=== PATIENT | female | born 1970 | race American Indian/Alaskan Native ===

== ENCOUNTER 2017-06-16 20:35 | Emergency (ER) | payer MEDICAID ==
--- NOTE | 2017-06-16 20:58 | EDM.PDOC ---
ED HPI GENERAL MEDICAL PROBLEM - General Chief Complaint: ENT Problem Stated Complaint: SORE THROAT Time Seen by Provider: 06/16/17 20:35 Source of Information: Reports: Patient History Limitations: Reports: No Limitations - History of Present Illness INITIAL COMMENTS - FREE TEXT/NARRATIVE: 46 y.o.f came to the ed due to sore throat, running nose and a prod cough. Pt quit smoking a week ago. No N/V/D or any other acute medical issues. BP 139/77 RR 18 Pulse ox 99% Temp 36.6 Pulse 87 Onset Date: 06/10/17 Onset Time: 09:00 Duration: Day(s):, Getting Worse, Intermittent Location: Reports: Chest Quality: Reports: Ache, Burning Severity: Mild Improves with: Reports: None Worsens with: Reports: None Throat Pain Score (Numeric/FACES): 8 - Related Data Allergies Allergy/AdvReac Type Severity Reaction Status Date / Time dust Allergy Wheezing Uncoded 06/16/17 20:44 Home Meds: Home Meds Ascorbic Acid [Vitamin C] 250 mg PO DAILY 06/16/17 [History] Calcium Carbonate/Vitamin D3 [Caltrate 600+D 1500 MG-400 Units] 1 tab PO DAILY 06/16/17 [History] Cetirizine [ZyrTEC] 10 mg PO DAILY 06/16/17 [History] Citalopram [Citalopram HBr] 20 mg PO DAILY 06/16/17 [History] Fluticasone Furoate [Flonase Sensimist] 2 sprays(dnu) NASBOTH DAILY 06/16/17 [ History] Gabapentin [Neurontin] 300 mg PO BID 06/16/17 [History] Multivitamins/Iron/Folic Acid [Cerovite Advanced Formula] 1 tab PO DAILY [History] Naproxen 500 mg PO DAILY 06/16/17 [History] Omeprazole 20 mg PO BEDTIME 06/16/17 [History] Sulfamethoxazole/Trimethoprim [Bactrim Ds Tablet] 1 each PO BID #20 tablet 06/16 [Rx] atorvaSTATin [Lipitor] 10 mg PO BEDTIME 06/16/17 [History] ED ROS ENT - Review of Systems Review Of Systems: See Below Constitutional: Reports: No Symptoms HEENT: Reports: Throat Pain Respiratory: Reports: Cough Cardiovascular: Reports: No Symptoms Endocrine: Reports: No Symptoms GI/Abdominal: Reports: No Symptoms : Reports: No Symptoms Musculoskeletal: Reports: No Symptoms Skin: Reports: No Symptoms Neurological: Reports: No Symptoms Psychiatric: Reports: No Symptoms Hematologic/Lymphatic: Reports: No Symptoms Immunologic: Reports: No Symptoms ED EXAM, ENT - Physical Exam Exam: See Below Exam Limited By: No Limitations General Appearance: Alert, WD/WN, Mild Distress Eye Exam: Bilateral Eye: Normal Inspection Ears: Normal External Exam Nose: Normal Inspection Mouth/Throat: Normal Inspection, Normal Gums Head: Atraumatic, Normocephalic Neck: Normal Inspection, Supple, Non-Tender, Full Range of Motion Respiratory/Chest: No Respiratory Distress, Rhonchi Cardiovascular: Normal Peripheral Pulses, Regular Rate, Rhythm, No Edema, No Gallop, No JVD, No Murmur, No Rub GI/Abdominal: Normal Bowel Sounds, Soft, Non-Tender, No Organomegaly, No Distention, No Abnormal Bruit, No Mass, Pelvis Stable (Female) Exam: Normal External Exam, Normal Speculum Exam, Normal Bimanual Exam Rectal (Female) Exam: Normal Exam, Normal Rectal Tone Back: Normal Inspection, Full Range of Motion Extremities: Normal Inspection, Normal Range of Motion Neurological: Alert, Oriented, CN II-XII Intact, Normal Cognition Psychiatric: Normal Affect, Normal Mood Skin: Warm, Dry Lymphatic: No Adenopathy Course - Vital Signs Text/Narrative:: 46 y.o.f came to the ed due to sore throat, running nose and a prod cough. Pt quit smoking a week ago. No N/V/D or any other acute medical issues. BP 139/77 RR 18 Pulse ox 99% Temp 36.6 Pulse 87 PE: Obese 46 y.o.f with nasal congestion and acute prod. cough Labs: RST and Influenza tests were neg, Cx is pending Impression: Acute Bronchitis, nasal congestion Tx: Bactrim DS Reexam: Improved Plan: D/C with instructions Last Recorded V/S: Last Vital Signs Temp 36.9 C 06/16/17 20:55 Pulse 83 06/16/17 22:20 Resp 18 06/16/17 20:55 BP 131/73 06/16/17 22:20 Pulse Ox 99 06/16/17 20:55 - Orders/Labs/Meds Meds: Medications Discontinued Medications Generic Name Dose Route Start Last Admin Trade Name Freq PRN Reason Stop Dose Admin Trimethoprim/Sulfamethoxazole 1 tab 06/16/17 22:05 06/16/17 22:15 Septra Ds PO 06/16/17 22:06 1 tab ONETIME ONE Administration Departure - Departure Time of Disposition: 22:06 Disposition: Home, Self-Care 01 Condition: Good Clinical Impression: Acute bronchitis Qualifiers: Bronchitis organism: other organism Qualified Code(s): J20.8 - Acute bronchitis due to other specified organisms - Discharge Information Prescriptions: Sulfamethoxazole/Trimethoprim [Bactrim Ds Tablet] 1 each PO BID #20 tablet Referrals: Bernice Coronado, [facility] [Primary Care Provider] - Forms: ED Department Discharge Additional Instructions: Please quit tobacco use entirely, please take the meds as recommended, please f/ u, come back if your symptoms get worse acutely.
[2017-06-16] MEDS ORDERED: Sulfamethoxazole/Trimethoprim 800-160 MG Tab PO ONE (22:05)
== END 2017-06-16 22:20 | disposition home or self-care (01) ==
LOC: FB.ED 20:35
DX: J20.8 Acute bronchitis due to other specified organisms (principal); Z91.048 Other nonmedicinal substance allergy status; Z79.899 Other long term (current) drug therapy
CPT/HCPCS: 87081; 87804; 87880; 99283; A9270

== ENCOUNTER 2018-12-12 23:13 | Emergency (ER) | payer MEDICAID ==
--- NOTE | 2018-12-12 23:17 | EDM.PDOC ---
ED HPI GENERAL MEDICAL PROBLEM - General Stated Complaint: BODY ACHES Time Seen by Provider: 12/12/18 23:16 Source of Information: Reports: Patient, EMS History Limitations: Reports: No Limitations - History of Present Illness INITIAL COMMENTS - FREE TEXT/NARRATIVE: 48 y.o.f. came to the ed by EMS due to pain urinations and gen body ache which started a few days ago. No N/V/D, no sick contact. No C/P no SOP or any other acute med issues. BP 124/74 RR 18 Pulse ox 100% on RA Temp 37.5 Pulse 95 Onset Date: 12/12/18 Onset Time: 10:00 Duration: Hour(s):, Intermittent Location: Reports: Generalized Quality: Reports: Burning Severity: Mild Improves with: Reports: Rest Worsens with: Reports: Other Context: Reports: Other Associated Symptoms: Reports: Other (gen bodyache) - Related Data Allergies Allergy/AdvReac Type Severity Reaction Status Date / Time dust Allergy Wheezing Uncoded 06/16/17 20:44 Home Meds: Home Meds Ascorbic Acid [Vitamin C] 250 mg PO DAILY 06/16/17 [History] Calcium Carbonate/Vitamin D3 [Caltrate 600+D 1500 MG-400 Units] 1 tab PO DAILY 06/16/17 [History] Cetirizine [ZyrTEC] 10 mg PO DAILY 06/16/17 [History] Citalopram [Citalopram HBr] 20 mg PO DAILY 06/16/17 [History] Fluticasone Furoate [Flonase Sensimist] 2 sprays(dnu) NASBOTH DAILY 06/16/17 [ History] Gabapentin [Neurontin] 300 mg PO BID 06/16/17 [History] Multivitamins/Iron/Folic Acid [Cerovite Advanced Formula] 1 tab PO DAILY [History] Naproxen 500 mg PO BID 06/16/17 [History] Omeprazole 20 mg PO DAILY 06/16/17 [History] Sulfamethoxazole/Trimethoprim [Bactrim Ds Tablet] 1 each PO BID #20 tablet 06/16 [Rx] Ciprofloxacin HCl [Cipro] 500 mg PO BID #20 tablet 12/12/18 [Rx] Gabapentin [Neurontin] 300 mg PO TID 12/12/18 [History] Phenazopyridine [Pyridium] 100 mg PO TID #9 tablet 12/12/18 [Rx] Acetaminophen [Tylenol Arthritis] 650 mg PO Q8H PRN 12/13/18 [History] Acetaminophen [Tylenol] 1 - 2 tab PO TID PRN 12/13/18 [History] Albuterol Sulfate [Albuterol Sulfate Hfa] 2 puff IH Q4H PRN 12/13/18 [History] Cyclobenzaprine [Flexeril] 10 mg PO TID PRN 12/13/18 [History] Rosuvastatin [Crestor] 5 mg PO DAILY 12/13/18 [History] Solifenacin [Vesicare] 5 mg PO DAILY 12/13/18 [History] Zolpidem Tartrate [Ambien] 10 mg PO BEDTIME PRN 12/13/18 [History] Past Medical History - Past Health History Medical/Surgical History: Denies Medical/Surgical History Social & Family History - Caffeine Use Caffeine Use: Reports: Tea ED ROS GENERAL - Review of Systems Review Of Systems: See Below Constitutional: Reports: No Symptoms HEENT: Reports: No Symptoms Respiratory: Reports: No Symptoms Cardiovascular: Reports: No Symptoms Endocrine: Reports: No Symptoms GI/Abdominal: Reports: No Symptoms : Reports: No Symptoms Musculoskeletal: Reports: Muscle Pain Skin: Reports: No Symptoms Neurological: Reports: No Symptoms Psychiatric: Reports: No Symptoms Hematologic/Lymphatic: Reports: No Symptoms Immunologic: Reports: No Symptoms ED EXAM, GENERAL - Physical Exam Exam: See Below Exam Limited By: No Limitations General Appearance: Alert, WD/WN, Mild Distress Eye Exam: Bilateral Eye: Normal Inspection Ears: Normal External Exam Ear Exam: Bilateral Ear: Auricle Normal Nose: Normal Inspection, Normal Mucosa Throat/Mouth: Normal Lips, Normal Voice, No Airway Compromise Head: Atraumatic, Normocephalic Neck: Normal Inspection, Supple, Non-Tender, Full Range of Motion Respiratory/Chest: No Respiratory Distress, Lungs Clear, Normal Breath Sounds, No Accessory Muscle Use, Chest Non-Tender Cardiovascular: Normal Peripheral Pulses, Regular Rate, Rhythm, No Edema, No Gallop, No Murmur, No Rub Peripheral Pulses: 1+: Radial (R) GI/Abdominal: Normal Bowel Sounds, Soft, Non-Tender, No Organomegaly, No Abnormal Bruit, No Mass, Pelvis Stable, Tender (suprapubic) (Female) Exam: Deferred Rectal (Female) Exam: Deferred Back Exam: Normal Inspection, Full Range of Motion Extremities: Normal Inspection, Normal Range of Motion, Non-Tender, Normal Capillary Refill Neurological: Alert, Oriented, CN II-XII Intact, Normal Cognition, Normal Gait, No Motor/Sensory Deficits Psychiatric: Normal Affect, Normal Mood Skin Exam: Warm, Dry, Intact, Normal Color, No Rash Lymphatic: No Adenopathy Course - Vital Signs Text/Narrative:: 48 y.o.f. came to the ed by EMS due to pain urinations and gen body ache which started a few days ago. No N/V/D, no sick contact. No C/P no SOP or any other acute med issues. BP 124/74 RR 18 Pulse ox 100% on RA Temp 37.5 Pulse 95 PE: WNWD W F with dysiria and gen body ache, no F/C Labs: CBC: WBC 13K Glc 119 UA pos for UTI with hematuria Impression: UTI with hematuria, body ache Tx: Levaquin, Pyridium and Toradol Reexam: Pt was pain free on D/C Plan: D/C with instructions Last Recorded V/S: Last Vital Signs Temp 37.5 C 12/12/18 23:15 Pulse 95 12/12/18 23:15 Resp 18 12/12/18 23:15 BP 142/74 H 12/12/18 23:15 Pulse Ox 100 12/12/18 23:15 - Orders/Labs/Meds Orders: Active Orders 24 hr Category Date Time Status CULTURE URINE [RM] Stat Lab 12/12/18 23:35 Received Labs: Laboratory Tests 12/12/18 12/12/18 12/12/18 Range/Units 23:31 23:31 23:35 WBC 13.0 H (4.5-12.0) X10-3/uL RBC 3.93 (3.23-5.20) x10(6)uL Hgb 12.2 (11.5-15.5) g/dL Hct 35.5 (30.0-51.3) % MCV 90.3 (80-96) fL MCH 31.0 (27.7-33.6) pg MCHC 34.3 (32.2-35.4) g/dL RDW 12.9 (11.5-15.5) % Plt Count 272 (125-369) X10(3)uL MPV 9.5 (7.4-10.4) fL Add Manual Diff Yes Neutrophils % (Manual) 78 (46-82) % Band Neutrophils % 3 (0-6) % Lymphocytes % (Manual) 12 L (13-37) % Monocytes % (Manual) 5 (4-12) % Eosinophils % (Manual) 2 (0-5) % Sodium 142 (135-145) mmol/L Potassium 4.6 (3.5-5.3) mmol/L Chloride 106 (100-110) mmol/L Carbon Dioxide 26 (21-32) mmol/L BUN 12 (7-18) mg/dL Creatinine 0.7 (0.55-1.02) mg/dL Est Cr Clr Drug Dosing TNP Estimated GFR (MDRD) > 60 (>60) BUN/Creatinine Ratio 17.1 (9-20) Glucose 119 H (80-116) mg/dL Calcium 8.6 (8.6-10.2) mg/dL Urine Color Yellow (YELLOW) Urine Appearance Slightly cloudy (CLEAR) Urine pH 6.0 (5.0-6.5) Ur Specific [place] 1.015 (1.010-1.025) Urine Protein Negative (NEGATIVE) mg/dL Urine Glucose (UA) Normal (NORMAL) mg/dL Urine Ketones Negative (NEGATIVE) mg/dL Urine Occult Blood Trace (NEGATIVE) Urine Nitrite Positive H (NEGATIVE) Urine Bilirubin Negative (NEGATIVE) Urine Urobilinogen Normal (NEGATIVE) mg/dL Ur Leukocyte Esterase Moderate H (NEGATIVE) Urine RBC 5-10 H (0-5) Urine WBC 30-40 H (0-5) Ur Squamous Epith Cells Few H (NS,R,O) Urine Bacteria Many H (NS) Meds: Medications Discontinued Medications Generic Name Dose Route Start Last Admin Trade Name Freq PRN Reason Stop Dose Admin Ketorolac Tromethamine 60 mg 12/12/18 23:55 12/13/18 00:34 Toradol IM 12/12/18 23:56 60 mg ONETIME ONE Administration Levofloxacin 500 mg 12/12/18 23:55 12/13/18 00:34 Levaquin PO 12/12/18 23:56 500 mg ONETIME ONE Administration Phenazopyridine HCl 95 mg 12/12/18 23:55 12/13/18 00:34 Urinary Pain Relief PO 12/12/18 23:56 95 mg ONETIME STA Administration Departure - Departure Time of Disposition: 23:58 Disposition: Home, Self-Care 01 Condition: Good Clinical Impression: UTI (urinary tract infection) - Discharge Information Prescriptions: Ciprofloxacin HCl [Cipro] 500 mg PO BID #20 tablet Phenazopyridine [Pyridium] 100 mg PO TID #9 tablet Referrals: PCP,None [Primary Care Provider] - Forms: ED Department Discharge Additional Instructions: Please increase water intake, please take the meds as recommended, please f/u, come back if your symptoms get worse acutely - My Orders Last 24 Hours: My Active Orders 12/12/18 23:35 CULTURE URINE [RM] Stat - Assessment/Plan Last 24 Hours: My Active Orders 12/12/18 23:35 CULTURE URINE [RM] Stat
[2018-12-12] MEDS ORDERED: Ketorolac 60 MG/2 ML SDV IM ONE (23:55)
[2018-12-12] MEDS ORDERED: Levofloxacin 500 MG Tab PO ONE (23:55)
[2018-12-12] MEDS ORDERED: Phenazopyridine 95 MG Tab PO STA (23:55)
== END 2018-12-13 01:35 | disposition home or self-care (01) ==
LOC: FB.ED 23:13
DX: N39.0 Urinary tract infection, site not specified (principal); Z91.048 Other nonmedicinal substance allergy status; Z79.899 Other long term (current) drug therapy
CPT/HCPCS: 36415; 80048; 81001; 85025; 87086; 87088; 87186; 96372; 99283; A9270; J1885

== ENCOUNTER 2019-03-24 00:40 | Emergency (ER) | payer MEDICAID ==
--- NOTE | 2019-03-24 01:20 | EDM.PDOC ---
ED HPI GENERAL MEDICAL PROBLEM - General Chief Complaint: Respiratory Problem Stated Complaint: COUGHING, H/A Time Seen by Provider: 03/24/19 01:00 Source of Information: Reports: Patient, Old Records History Limitations: Reports: No Limitations - History of Present Illness INITIAL COMMENTS - FREE TEXT/NARRATIVE: Kim comes into [facility] ED with a week long hx of nonproductive coughing, malaise , achiness, low grade fever. She also fell out of bed and has a sore R lower chest wall that is aggravated with coughing. She is also feeling some burning on urination and frequency of voiding lately. There is no hx of asthma, but she believes she is allergic to house dust. - Related Data Allergies Allergy/AdvReac Type Severity Reaction Status Date / Time atorvastatin [From Lipitor] Allergy Edema Verified 03/24/19 01:01 dust Allergy Wheezing Uncoded 12/13/18 06:16 Home Meds: Home Meds Ascorbic Acid [Vitamin C] 250 mg PO DAILY 06/16/17 [History] Calcium Carbonate/Vitamin D3 [Caltrate 600+D 1500 MG-400 Units] 1 tab PO DAILY 06/16/17 [History] Cetirizine [ZyrTEC] 10 mg PO DAILY 06/16/17 [History] Fluticasone Furoate [Flonase Sensimist] 2 sprays(dnu) NASBOTH DAILY 06/16/17 [ History] Multivitamins/Iron/Folic Acid [Cerovite Advanced Formula] 1 tab PO DAILY [History] Naproxen 500 mg PO BID 06/16/17 [History] Omeprazole 20 mg PO DAILY 06/16/17 [History] Gabapentin [Neurontin] 300 mg PO TID 12/12/18 [History] Phenazopyridine [Pyridium] 100 mg PO TID #9 tablet 12/12/18 [Rx] Acetaminophen [Tylenol Arthritis] 650 mg PO Q8H PRN 12/13/18 [History] Acetaminophen [Tylenol] 1 - 2 tab PO TID PRN 12/13/18 [History] Albuterol Sulfate [Albuterol Sulfate Hfa] 2 puff IH Q4H PRN 12/13/18 [History] Cyclobenzaprine [Flexeril] 10 mg PO TID PRN 12/13/18 [History] Rosuvastatin [Crestor] 5 mg PO DAILY 12/13/18 [History] Solifenacin [Vesicare] 5 mg PO DAILY 12/13/18 [History] Zolpidem Tartrate [Ambien] 10 mg PO BEDTIME PRN 12/13/18 [History] Doxycycline [Vibramycin] 100 mg PO BID #14 cap 03/24/19 [Rx] Phenylephrine/Promethazine [Phenergan VC] 2 tsp PO QID PRN #120 ml 03/24/19 [Rx] Past Medical History - Past Health History Medical/Surgical History: Denies Medical/Surgical History Genitourinary History: Reports: Urinary Incontinence, UTI, Recurrent Musculoskeletal History: Reports: Fibromyalgia Neurological History: Reports: Other (See Below) Other Neuro History: Bulging disc. Arthritic spine. Psychiatric History: Reports: Depression, OCD, Other (See Below) Other Psychiatric History: States she has mental health issues. Past suicidal concerns. Endocrine/Metabolic History: Reports: Other (See Below) Other Endocrine/Metabolic History: States she is pre-diabetic. Social & Family History - Caffeine Use Caffeine Use: Reports: Tea ED ROS GENERAL - Review of Systems Review Of Systems: See Below Constitutional: Reports: Fever, Malaise HEENT: Reports: Glasses, Rhinitis Respiratory: Reports: Cough Cardiovascular: Reports: No Symptoms Endocrine: Reports: No Symptoms GI/Abdominal: Reports: No Symptoms : Reports: Dysuria, Frequency, Urgency Musculoskeletal: Reports: No Symptoms Skin: Reports: No Symptoms Neurological: Reports: No Symptoms Psychiatric: Reports: Anxiety, Depression Hematologic/Lymphatic: Reports: No Symptoms Immunologic: Reports: No Symptoms ED EXAM, GENERAL - Physical Exam Exam: See Below Exam Limited By: No Limitations General Appearance: Alert, WD/WN, Obese Eye Exam: Bilateral Eye: EOMI, Normal Inspection, PERRL Ears: Normal External Exam, Normal TMs Nose: Normal Inspection Throat/Mouth: Normal Inspection, Normal Lips, Normal Gums, Normal Oropharynx, Normal Voice, No Airway Compromise Head: Normocephalic Neck: Normal Inspection, Supple, Non-Tender Respiratory/Chest: No Respiratory Distress, No Accessory Muscle Use, Decreased Breath Sounds, Crackles, Rhonchi Cardiovascular: Regular Rate, Rhythm, No Murmur GI/Abdominal: Normal Bowel Sounds, Soft, Non-Tender, No Organomegaly, No Distention, No Mass (Female) Exam: Deferred Rectal (Female) Exam: Deferred Back Exam: Normal Inspection Extremities: Normal Inspection Neurological: Alert, Oriented, CN II-XII Intact, Normal Cognition, No Motor/ Sensory Deficits Psychiatric: Normal Affect, Anxious Skin Exam: Warm, Dry, Intact, Normal Color, No Rash Lymphatic: No Adenopathy Course - Vital Signs Text/Narrative:: Following assessment, I ordered a chest x ray: no active infiltrates; CBC, BMP and Influenza Screen A&B: neg. Last Recorded V/S: Last Vital Signs Temp 37.6 C 03/24/19 00:40 Pulse 109 H 03/24/19 00:40 Resp 20 03/24/19 00:40 BP 133/72 03/24/19 00:40 Pulse Ox 100 03/24/19 00:40 - Orders/Labs/Meds Orders: Active Orders 24 hr Category Date Time Status Chest 2V [CR] Stat Exams 03/24/19 01:12 Taken Labs: Laboratory Tests 03/24/19 03/24/19 03/24/19 Range/Units 01:16 01:35 01:35 WBC 12.2 H (4.5-12.0) X10-3/uL RBC 3.55 (3.23-5.20) x10(6)uL Hgb 10.5 L (11.5-15.5) g/dL Hct 31.7 (30.0-51.3) % MCV 89.5 (80-96) fL MCH 29.6 (27.7-33.6) pg MCHC 33.0 (32.2-35.4) g/dL RDW 13.5 (11.5-15.5) % Plt Count 432 H (125-369) X10(3)uL MPV 8.3 (7.4-10.4) fL Neut % (Auto) 71.6 (46-82) % Lymph % (Auto) 17.1 (13-37) % [place] % (Auto) 10.1 (4-12) % Eos % (Auto) 1 (1.0-5.0) % Baso % (Auto) 1 (0-2) % Neut # (Auto) 8.7 H (1.6-8.3) # Lymph # (Auto) 2.1 (0.6-5.0) # [place] # (Auto) 1.2 (0.0-1.3) # Eos # (Auto) 0.1 (0.0-0.8) # Baso # (Auto) 0.1 (0.0-0.2) # Sodium 139 (135-145) mmol/L Potassium 3.8 (3.5-5.3) mmol/L Chloride 102 (100-110) mmol/L Carbon Dioxide 24 (21-32) mmol/L BUN 6 L (7-18) mg/dL Creatinine 0.8 (0.55-1.02) mg/dL Est Cr Clr Drug Dosing TNP Estimated GFR (MDRD) > 60 (>60) BUN/Creatinine Ratio 7.5 L (9-20) Glucose 100 (80-116) mg/dL Calcium 9.2 (8.6-10.2) mg/dL Urine Color Yellow (YELLOW) Urine Appearance Slightly cloudy (CLEAR) Urine pH 7.0 H (5.0-6.5) Ur Specific [place] 1.015 (1.010-1.025) Urine Protein Negative (NEGATIVE) mg/dL Urine Glucose (UA) Normal (NORMAL) mg/dL Urine Ketones Negative (NEGATIVE) mg/dL Urine Occult Blood Moderate H (NEGATIVE) Urine Nitrite Negative (NEGATIVE) Urine Bilirubin Negative (NEGATIVE) Urine Urobilinogen Normal (NEGATIVE) mg/dL Ur Leukocyte Esterase Small H (NEGATIVE) Urine RBC 5-10 H (0-5) Urine WBC 0-5 (0-5) Ur Squamous Epith Cells Few H (NS,R,O) Urine Bacteria Few H (NS) Departure - Departure Time of Disposition: 02:41 Disposition: Home, Self-Care 01 Condition: Fair Clinical Impression: Acute bronchitis Qualifiers: Bronchitis organism: other organism Qualified Code(s): J20.8 - Acute bronchitis due to other specified organisms - Discharge Information *PRESCRIPTION DRUG MONITORING PROGRAM REVIEWED*: Not Applicable *COPY OF PRESCRIPTION DRUG MONITORING REPORT IN PATIENT TIANNA: Not Applicable Prescriptions: Doxycycline [Vibramycin] 100 mg PO BID #14 cap Phenylephrine/Promethazine [Phenergan VC] 2 tsp PO QID PRN #120 ml PRN Reason: Cough Forms: ED Department Discharge Sepsis Event Note - Focused Exam Vital Signs: Vital Signs Temp Pulse Resp BP Pulse Ox 03/24/19 00:40 37.6 C 109 H 20 133/72 100 Date Exam was Performed: 03/24/19 Time Exam was Performed: 02:40 - Problem List & Annotations (1) Acute bronchitis SNOMED Code(s): 58254341 Code(s): J20.9 - ACUTE BRONCHITIS, UNSPECIFIED Status: Acute Current Visit: Yes Annotation/Comment:: Bronchitis. I dispensed Doxycycline 100 mg bid and Phenergan Exp VC as directed for sxs. Qualifiers: Bronchitis organism: other organism Qualified Code(s): J20.8 - Acute bronchitis due to other specified organisms - Problem List Review Problem List Initiated/Reviewed/Updated: Yes - My Orders Last 24 Hours: My Active Orders 03/24/19 01:12 Chest 2V [CR] Stat - Assessment/Plan Last 24 Hours: My Active Orders 03/24/19 01:12 Chest 2V [CR] Stat Plan: Follow up with PCP if needed.
== END 2019-03-24 02:50 | disposition home or self-care (01) ==
LOC: FB.ED 00:40
DX: J20.8 Acute bronchitis due to other specified organisms (principal); F32.9 Major depressive disorder, single episode, unspecified; Z79.899 Other long term (current) drug therapy; Z88.8 Allergy status to other drugs, medicaments and biological substances; Z91.09 Other allergy status, other than to drugs and biological substances
CPT/HCPCS: 36415; 71046; 80048; 81001; 85025; 87804; 87804-59; 99283-25

== ENCOUNTER 2020-08-12 14:11 | Emergency (ER) | payer MEDICAID, OTHER ==
--- NOTE | 2020-08-12 14:37 | EDM.PDOC ---
ED HPI GENERAL MEDICAL PROBLEM - General Stated Complaint: POSSIBLE ALLGERIC REACTION/UTI? Time Seen by Provider: 08/12/20 14:35 Source of Information: Reports: Patient History Limitations: Reports: No Limitations - History of Present Illness INITIAL COMMENTS - FREE TEXT/NARRATIVE: 49-year-old female who reports that on 08/10/2020 she awoke with swelling in her face. She reports that the swelling has continued since that time and yesterday she felt that her tongue was somewhat swollen and Valeriano feeling and she found it difficult to move her tongue around because it was so sore and felt swollen and Valeriano. She was able to swallow okay and she felt like she was breathing okay. She is rating the pain is about a 5/10. She does not have swelling elsewhere. She has had no fevers or chills. She does note that she has had more frequent urination and it seems to be burning more and it has an odor to it. She does have a history of stress incontinence and she is on medication to help with overactive bladder. She also is on thyroid medication and medication for chronic pain issues (Neurontin, cyclobenzaprine and ibuprofen). She is on no katie inhibitors or ARB's. She denies any weakness or dizziness. She has had no nausea or vomiting. There are no other associated signs or symptoms. There are no other modifying factors. 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 (see below) (Nothing.) - Related Data Allergies Allergy/AdvReac Type Severity Reaction Status Date / Time atorvastatin [From Lipitor] Allergy Edema Verified 03/24/19 01:01 dust Allergy Wheezing Uncoded 12/13/18 06:16 Home Meds: Home Meds Ascorbic Acid [Vitamin C] 250 mg PO DAILY 06/16/17 [History] Calcium Carbonate/Vitamin D3 [Caltrate 600+D 1500 MG-400 Units] 1 tab PO DAILY 06/16/17 [History] Cetirizine [ZyrTEC] 10 mg PO DAILY 06/16/17 [History] Fluticasone Furoate [Flonase Sensimist] 2 sprays(dnu) NASBOTH DAILY 06/16/17 [History] Multivitamins/Iron/Folic Acid [Cerovite Advanced Formula] 1 tab PO DAILY 06/16/17 [History] Naproxen 500 mg PO BID 06/16/17 [History] Omeprazole 20 mg PO DAILY 06/16/17 [History] Gabapentin [Neurontin] 300 mg PO TID 12/12/18 [History] Phenazopyridine [Pyridium] 100 mg PO TID #9 tablet 12/12/18 [Rx] Acetaminophen [Tylenol Arthritis] 650 mg PO Q8H PRN 12/13/18 [History] Acetaminophen [Tylenol] 1 - 2 tab PO TID PRN 12/13/18 [History] Albuterol Sulfate [Albuterol Sulfate Hfa] 2 puff IH Q4H PRN 12/13/18 [History] Cyclobenzaprine [Flexeril] 10 mg PO TID PRN 12/13/18 [History] Rosuvastatin [Crestor] 5 mg PO DAILY 12/13/18 [History] Solifenacin [Vesicare] 5 mg PO DAILY 12/13/18 [History] Zolpidem Tartrate [Ambien] 10 mg PO BEDTIME PRN 12/13/18 [History] Doxycycline [Vibramycin] 100 mg PO BID #14 cap 03/24/19 [Rx] Phenylephrine/Promethazine [Phenergan VC] 2 tsp PO QID PRN #120 ml 03/24/19 [Rx] Famotidine [Pepcid] 20 mg PO BID #8 tab 08/12/20 [Rx] Fluconazole [Diflucan] 200 mg PO DAILY 7 Days #7 tablet 08/12/20 [Rx] Potassium Chloride 20 meq PO BID 5 Days #10 tab.er.prt 08/12/20 [Rx] cephALEXin [Keflex] 750 mg PO TID 7 Days #63 cap 08/12/20 [Rx] diphenhydrAMINE HCL [Diphenhydramine HCl] 50 mg PO QID #20 capsule 08/12/20 [Rx] Past Medical History Genitourinary History: Reports: Urinary Incontinence, UTI, Recurrent Musculoskeletal History: Reports: Arthritis, Back Pain, Chronic, Fibromyalgia, Osteoarthritis, Other (See Below) (DJD and DDD) Psychiatric History: Reports: Anxiety, Depression, OCD, PTSD, Other (See Below) Other Psychiatric History: Borderline personality disorder Endocrine/Metabolic History: Reports: Obesity/BMI 30+, Other (See Below) Other Endocrine/Metabolic History: States she is pre-diabetic. - Past Surgical History Female Surgical History: Reports: Section (2) Social & Family History - Tobacco Use Tobacco Use Status *Q: Current Every Day Tobacco User - Caffeine Use Caffeine Use: Reports: Tea - Alcohol Use Alcohol Use History: No ED ROS ENT - Review of Systems Review Of Systems: See Below Constitutional: Reports: No Symptoms HEENT: Reports: Other (Facial swelling. Tongue swelling and pain.) Respiratory: Reports: No Symptoms Cardiovascular: Reports: No Symptoms Endocrine: Reports: No Symptoms GI/Abdominal: Reports: No Symptoms : Reports: Frequency, Incontinence, Other (Foul smelling urine) Musculoskeletal: Reports: No Symptoms Skin: Reports: No Symptoms Neurological: Reports: No Symptoms Hematologic/Lymphatic: Reports: No Symptoms Immunologic: Reports: No Symptoms ED EXAM, ENT - Physical Exam Exam: See Below Exam Limited By: No Limitations General Appearance: Alert, Mild Distress, Obese, Other (Nontoxic. No respiratory distress.) Eye Exam: Bilateral Eye: EOMI, Normal Inspection Ears: Normal External Exam, Hearing Grossly Normal Nose: Normal Inspection, Normal Mucousa, No Blood Mouth/Throat: Normal Lips, Tongue Swelling (With erythema and white patches that is concerning for oral thrush. There is no tonsillar edema or erythema or exudate.), Other (Mild swelling and questional erythema of both cheeks. No rash.) Head: Atraumatic, Normocephalic Neck: Normal Inspection, Supple, Full Range of Motion, Tender Lateral, Other (No stridor.). No: Lymphadenopathy (R), Lymphadenopathy (L) Respiratory/Chest: No Respiratory Distress, Lungs Clear, Normal Breath Sounds, No Accessory Muscle Use, Chest Non-Tender Cardiovascular: Normal Peripheral Pulses, Regular Rate, Rhythm, No Murmur GI/Abdominal: Normal Bowel Sounds, Soft, Non-Tender, No Mass Back: Normal Inspection, Full Range of Motion Extremities: Normal Inspection, Normal Range of Motion, Non-Tender, No Pedal Edema, Normal Capillary Refill Neurological: Alert, Oriented, CN II-XII Intact, Normal Cognition, No Motor/Sensory Deficits Psychiatric: Flat Affect Skin: Warm, Dry, Intact, Normal Color, No Rash Course - Vital Signs Last Recorded V/S: Last Vital Signs Temp 36.6 C 08/12/20 14:11 Pulse 90 08/12/20 17:28 Resp 20 08/12/20 17:28 BP 140/72 08/12/20 17:28 Pulse Ox 100 08/12/20 17:28 - Orders/Labs/Meds Orders: Active Orders 24 hr Category Date Time Status CULTURE URINE [RM] Stat Lab 08/12/20 15:24 Received Labs: Laboratory Tests 08/12/20 08/12/20 08/12/20 Range/Units 15:00 15:00 15:24 WBC 10.0 (3.0-10.3) x10-3/uL RBC 4.07 (3.60-5.20) x10(6)uL Hgb 11.9 (11.4-15.5) g/dL Hct 36.4 (34.2-48.2) % MCV 89.5 (76.7-100.5) fL MCH 29.3 (23.9-33.9) pg MCHC 32.7 (31.9-34.8) g/dL RDW 14.3 (12.3-16.5) % Plt Count 294 (151-488) x10(3)uL MPV 8.7 (7.1-12.4) fL Neut % (Auto) 58.0 (30.8-76.2) % Lymph % (Auto) 32.4 (18.4-52.1) % [place] % (Auto) 5.3 (4.4-15.7) % Eos % (Auto) 3.3 (0.6-8.1) % Baso % (Auto) 1.0 (0.2-1.5) % Neut # (Auto) 5.8 (1.5-6.3) x10-3/uL Lymph # (Auto) 3.3 (1.0-4.4) x10-3/uL [place] # (Auto) 0.5 (0.3-1.0) x10-3/uL Eos # (Auto) 0.3 (0.0-0.8) x10-3/uL Baso # (Auto) 0.1 (0.0-0.1) x10-3/uL Sodium 141 (135-145) mmol/L Potassium 3.1 L (3.5-5.3) mmol/L Chloride 103 (100-110) mmol/L Carbon Dioxide 27 (21-32) mmol/L BUN 9 (7-18) mg/dL Creatinine 0.8 (0.55-1.02) mg/dL Est Cr Clr Drug Dosing 77.88 mL/min Estimated GFR (MDRD) > 60 (>60) BUN/Creatinine Ratio 11.3 (9-20) Glucose 110 (80-116) mg/dL Calcium 7.7 L (8.6-10.2) mg/dL Magnesium 1.9 (1.8-2.5) mg/dL Total Bilirubin 0.6 (0.1-1.3) mg/dL AST 42 H (5-25) IU/L ALT 67 H (12-36) U/L Alkaline Phosphatase 115 H (56-112) IU/L Total Protein 7.3 (6.0-8.0) g/dL Albumin 3.7 (3.5-5.2) g/dL Globulin 3.6 g/dL Albumin/Globulin Ratio 1.0 Urine Color Yellow (YELLOW) Urine Appearance Slightly cloudy (CLEAR) Urine pH 6.5 (5.0-6.5) Ur Specific [place] 1.010 (1.010-1.025) Urine Protein Negative (NEGATIVE) mg/dL Urine Glucose (UA) Normal (NORMAL) mg/dL Urine Ketones Negative (NEGATIVE) mg/dL Urine Occult Blood Moderate H (NEGATIVE) Urine Nitrite Positive H (NEGATIVE) Urine Bilirubin Negative (NEGATIVE) Urine Urobilinogen Normal (NEGATIVE) mg/dL Ur Leukocyte Esterase Large H (NEGATIVE) U Hyaline Cast (Auto) Few H (NS) Urine RBC 0-5 (0-5) Urine WBC >100 H (0-5) Ur Squamous Epith Cells Few H (NS,R,O) Urine Bacteria Many H (NS) Meds: Medications Discontinued Medications Generic Name Dose Route Start Last Admin Trade Name Freq PRN Reason Stop Dose Admin Diphenhydramine HCl 50 mg 08/12/20 15:49 08/12/20 16:21 Diphenhydramine 50 Mg/Ml Sdv IM 08/12/20 15:50 50 mg ONETIME ONE Administration Famotidine 20 mg 05/24/21 16:11 08/12/20 16:21 Famotidine 20 Mg Tab PO 08/12/20 16:12 20 mg ONETIME ONE Administration Potassium Chloride 40 meq 08/12/20 16:00 08/12/20 16:21 Potassium Chloride 20 Meq Packet PO 40 meq ASDIRECTED UMESH Administration - Re-Assessments/Exams Free Text/Narrative Re-Assessment/Exam: 08/12/20 16:25: Patient's blood tests were reassuringly normal except for potassium of 3.1. Her urine test did show some evidence of infection. I am concerned that this could represent an allergic reaction. Therefore I ordered the patient to get Benadryl 50 mg IM. I have also ordered her potassium 20 mg by mouth and Pepcid 20 mg by mouth. The tongue has a white coating on it and I am concerned that this represents oral thrush. I'm unsure why she would have oral thrush but I feel it is necessary to cover her for this possibility. Therefore, I feel the patient is stable for discharge but I will treat her with Diflucan 200 mg daily for 7 days. She will also get potassium chloride 20 mEq twice daily for 5 days. I have given her prescriptions of Benadryl and Pepcid that she should take for the next 2 days for allergic reaction and then as needed. In addition, I am placing her on Keflex 750 mg 3 times a day for 7 days to treat her urinary tract infection. I have told her she needs to follow-up with her primary provider this week for recheck. I have answered all her questions. She feels comfortable with the plan for discharge and precautions and reasons for return to the emergency department were discussed with the patient while she was in the emergency department and were detailed in the patient's discharge instructions. Departure - Departure Time of Disposition: 17:01 Disposition: Home, Self-Care 01 Condition: Good Clinical Impression: Oral thrush Allergic reaction Qualifiers: Encounter type: initial encounter Qualified Code(s): T78.40XA - Allergy, unspecified, initial encounter - Discharge Information Prescriptions: Fluconazole [Diflucan] 200 mg PO DAILY 7 Days #7 tablet diphenhydrAMINE HCL [Diphenhydramine HCl] 50 mg PO QID #20 capsule cephALEXin [Keflex] 750 mg PO TID 7 Days #63 cap Famotidine [Pepcid] 20 mg PO BID #8 tab Potassium Chloride 20 meq PO BID 5 Days #10 tab.er.prt Instructions: Allergies, Adult, [id number], Oral Thrush, Adult, [id number] Referrals: PCP,None [Primary Care Provider] - Forms: ED Department Discharge Additional Instructions: All of your blood tests were reassuring except you did have a slightly low potassium level. I think it is possible that the swelling in your face is an allergic reaction. I am unsure of the cause of your allergic reaction but I don't think it is related to any of your medications. The swelling and rawness of your tongue appears to be related to thrush or a fungal infection. Your urine test did show evidence of a urinary tract infection. I am placing you on Keflex to treat this infection. You need to increase your fluid intake. I am placing you on potassium twice a day for the next 5 days to help replace your potassium. I am also going to have take Benadryl 50 mg 4 times a day for the next 2 days and then as needed for allergic reaction. I have also given you a prescription for Pepcid 20 mg to take twice daily for the next 2 days and then as needed for allergic reaction. I am also placing you on Diflucan 200 mg daily for the next 7 days to treat your oral thrush. Follow-up with your primary doctor in the next 2-3 days for recheck. Back to the emergency department for trouble breathing, inability to swallow, worsening swelling of your tongue, high fever, severe weakness or any other concerning signs or symptoms. All of the above prescriptions were sent to [facility] in [place]. Sepsis Event Note (ED) - Focused Exam Vital Signs: Vital Signs Temp Pulse Resp BP Pulse Ox 08/12/20 17:28 90 20 140/72 100 08/12/20 14:11 36.6 C 99 20 137/74 100 - My Orders Last 24 Hours: My Active Orders 08/12/20 15:24 CULTURE URINE [RM] Stat - Assessment/Plan Last 24 Hours: My Active Orders 08/12/20 15:24 CULTURE URINE [RM] Stat
[2020-08-12] MEDS ORDERED: diphenhydrAMINE 50 MG/ML SDV IM ONE (15:49)
[2020-08-12] MEDS ORDERED: Potassium Chloride 20 MEQ Packet PO SCH (16:00)
[2020-08-12] MEDS ORDERED: Famotidine 20 MG Tab PO ONE (16:11)
== END 2020-08-12 17:28 | disposition home or self-care (01) ==
LOC: FB.ED 14:11
DX: B37.0 Candidal stomatitis (principal); T50.905A Adverse effect of unspecified drugs, medicaments and biological substances, initial encounter; E66.9 Obesity, unspecified; Z88.8 Allergy status to other drugs, medicaments and biological substances; Z91.048 Other nonmedicinal substance allergy status; Z72.0 Tobacco use; Z68.37 Body mass index [BMI] 37.0-37.9, adult
CPT/HCPCS: 36415; 80053; 81001; 83735; 85025; 87086; 87088; 87186; 96372; 99283; A9270; J1200

== ENCOUNTER 2020-09-21 21:26 | Emergency (ER) | payer MEDICAID, OTHER ==
[2020-09-21] MEDS ORDERED: Lidocaine 1% 20 ML MDV INFILT ONE (21:27)
--- NOTE | 2020-09-21 22:40 | EDM.PDOC ---
ED HPI GENERAL MEDICAL PROBLEM - General Chief Complaint: General Stated Complaint: fell on knife Time Seen by Provider: 09/21/20 21:30 Source of Information: Reports: Patient History Limitations: Reports: No Limitations - History of Present Illness INITIAL COMMENTS - FREE TEXT/NARRATIVE: tripped on cushio at home and landed on the tip of knife she was holding, sustained a puncture wound to her left palm in 2 spots, still bleeding separately pt is complaining of urinary frequency also has old unhealed wound in the lateral right leg that she is concerned about Onset: Today Onset Date: 09/21/20 Onset Time: 21:00 Location: Reports: Upper Extremity, Left Quality: Reports: Ache Severity: Mild Improves with: Reports: None Worsens with: Reports: None Context: Reports: Trauma Associated Symptoms: Reports: No Other Symptoms Right Hand Pain Score (Numeric/FACES): 7 - Related Data Allergies Allergy/AdvReac Type Severity Reaction Status Date / Time atorvastatin [From Lipitor] Allergy Edema Verified 03/24/19 01:01 dust Allergy Wheezing Uncoded 12/13/18 06:16 Home Meds: Home Meds Ascorbic Acid [Vitamin C] 250 mg PO DAILY 06/16/17 [History] Calcium Carbonate/Vitamin D3 [Caltrate 600+D 1500 MG-400 Units] 1 tab PO DAILY 06/16/17 [History] Cetirizine [ZyrTEC] 10 mg PO DAILY 06/16/17 [History] Fluticasone Furoate [Flonase Sensimist] 2 sprays(dnu) NASBOTH DAILY 06/16/17 [History] Multivitamins/Iron/Folic Acid [Cerovite Advanced Formula] 1 tab PO DAILY 06/16/17 [History] Naproxen 500 mg PO BID 06/16/17 [History] Omeprazole 20 mg PO DAILY 06/16/17 [History] Gabapentin [Neurontin] 300 mg PO TID 12/12/18 [History] Phenazopyridine [Pyridium] 100 mg PO TID #9 tablet 12/12/18 [Rx] Acetaminophen [Tylenol Arthritis] 650 mg PO Q8H PRN 12/13/18 [History] Acetaminophen [Tylenol] 1 - 2 tab PO TID PRN 12/13/18 [History] Albuterol Sulfate [Albuterol Sulfate Hfa] 2 puff IH Q4H PRN 12/13/18 [History] Cyclobenzaprine [Flexeril] 10 mg PO TID PRN 12/13/18 [History] Rosuvastatin [Crestor] 5 mg PO DAILY 12/13/18 [History] Solifenacin [Vesicare] 5 mg PO DAILY 12/13/18 [History] Zolpidem Tartrate [Ambien] 10 mg PO BEDTIME PRN 12/13/18 [History] Doxycycline [Vibramycin] 100 mg PO BID #14 cap 03/24/19 [Rx] Phenylephrine/Promethazine [Phenergan VC] 2 tsp PO QID PRN #120 ml 03/24/19 [Rx] Famotidine [Pepcid] 20 mg PO BID #8 tab 08/12/20 [Rx] Fluconazole [Diflucan] 200 mg PO DAILY 7 Days #7 tablet 08/12/20 [Rx] Potassium Chloride 20 meq PO BID 5 Days #10 tab.er.prt 08/12/20 [Rx] cephALEXin [Keflex] 750 mg PO TID 7 Days #63 cap 08/12/20 [Rx] diphenhydrAMINE HCL [Diphenhydramine HCl] 50 mg PO QID #20 capsule 08/12/20 [Rx] Nitrofurantoin Monohyd/M-Cryst [Macrobid 100 mg Capsule] 100 mg PO BID #14 capsule 08/14/20 [Rx] Sulfamethoxazole/Trimethoprim [Bactrim Ds Tablet] 1 each PO BID #20 tablet 09/21/20 [Rx] Past Medical History - Past Health History Medical/Surgical History: Denies Medical/Surgical History Genitourinary History: Reports: Urinary Incontinence, UTI, Recurrent 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 Arthritic spine. Psychiatric History: Reports: Anxiety, Depression, OCD, PTSD, Other (See Below) Other Psychiatric History: Borderline personality disorder Endocrine/Metabolic History: Reports: Obesity/BMI 30+, Other (See Below) Other Endocrine/Metabolic History: States she is pre-diabetic. - Past Surgical History Female Surgical History: Reports: Section (2) Social & Family History - Family History Family Medical History: No Pertinent Family History - Caffeine Use Caffeine Use: Reports: Soda, Tea ED ROS GENERAL - Review of Systems Review Of Systems: Comprehensive ROS is negative, except as noted in HPI. ED EXAM, GENERAL - Physical Exam Exam: See Below Exam Limited By: No Limitations General Appearance: Alert, WD/WN, No Apparent Distress Eye Exam: Bilateral Eye: EOMI Ears: Normal External Exam Nose: Normal Inspection Throat/Mouth: Normal Oropharynx Head: Atraumatic, Normocephalic Neck: Supple, Non-Tender Respiratory/Chest: No Respiratory Distress Cardiovascular: Regular Rate, Rhythm Peripheral Pulses: 2+: Radial (L), Radial (R) GI/Abdominal: Soft, Non-Tender Back Exam: No: CVA Tenderness (R), CVA Tenderness (L) Extremities: Normal Inspection, Non-Tender, No Pedal Edema Neurological: Alert, Oriented, CN II-XII Intact Skin Exam: Wound/Incision (left palm with puncture wound 0.6 and 0.5 cm long), Other (unhealed wound in lateral right leg ) Lymphatic: No Adenopathy ED GENERAL MEDICAL PROCEDURES - Laceration/Wound Repair Bilateral Upper Other Lac/wound length in cm: 0.6 (and 0.5) Appearance: Superficial, Linear, Clean Distal NVT: Neuro & Vascular Intact, No Tendon Injury Anesthetic Type: Local Local Anesthesia - Lidocaine (Xylocaine): 1% Plain Local Anesthetic Volume: 4cc Skin Prep: Chlorhexidine (Hibiciens) Exploration/Debridement/Repair: Wound Explored, No Foreign Material Found Closed with: Sutures Suture Size: 4-0 # of Sutures: 4 Suture Type: Prolene Sterile Dressing Applied: Nurse Tetanus Status Addressed: Yes Complications: No Course - Vital Signs Last Recorded V/S: Last Vital Signs Temp 37.0 C 09/21/20 21:28 Pulse 95 09/21/20 21:28 Resp 18 09/21/20 21:28 BP 134/87 09/21/20 21:28 Pulse Ox 98 09/21/20 21:28 - Orders/Labs/Meds Orders: Active Orders 24 hr Category Date Time Status Vaccines to be Administered [RC] PER UNIT ROUTINE Care 09/21/20 22:38 Active CULTURE URINE [RM] Stat Lab 09/21/20 22:50 Received Labs: Laboratory Tests 09/21/20 Range/Units 22:50 Urine Color Yellow (YELLOW) Urine Appearance Cloudy (CLEAR) Urine pH 6.5 (5.0-6.5) Ur Specific [place] 1.015 (1.010-1.025) Urine Protein Negative (NEGATIVE) mg/dL Urine Glucose (UA) Normal (NORMAL) mg/dL Urine Ketones Negative (NEGATIVE) mg/dL Urine Occult Blood Trace (NEGATIVE) Urine Nitrite Positive H (NEGATIVE) Urine Bilirubin Negative (NEGATIVE) Urine Urobilinogen Normal (NEGATIVE) mg/dL Ur Leukocyte Esterase Moderate H (NEGATIVE) Urine RBC 0-5 (0-5) Urine WBC 40-50 H (0-5) Ur Squamous Epith Cells Few H (NS,R,O) Urine Bacteria Many H (NS) Meds: Medications Discontinued Medications Generic Name Dose Route Start Last Admin Trade Name Jhonatanq PRN Reason Stop Dose Admin Ceftriaxone Sodium 1 gm 09/21/20 23:09 09/21/20 23:17 Ceftriaxone 1 Gm Vial IM 09/21/20 23:10 1 gm ONETIME ONE Administration Diphtheria/Tetanus/Acell Pertussis 0.5 ml 09/21/20 22:38 09/21/20 23:09 Diphtheria,Pertussis(Acell),Tetanus Vaccine 0.5 Ml Syringe IM 09/21/20 22:39 0.5 ml .ONCE ONE Administration - Re-Assessments/Exams Free Text/Narrative Re-Assessment/Exam: 09/21/20 22:42 remained stable requested treatment for leg wound and also thinks she has a UTI Departure - Departure Time of Disposition: 23:50 Disposition: Home, Self-Care 01 Condition: Fair Clinical Impression: Laceration of left palm without complication, Wound of right leg, UTI, Urinary tract infectious disease - Discharge Information *PRESCRIPTION DRUG MONITORING PROGRAM REVIEWED*: No *COPY OF PRESCRIPTION DRUG MONITORING REPORT IN PATIENT TIANNA: No Prescriptions: Sulfamethoxazole/Trimethoprim [Bactrim Ds Tablet] 1 each PO BID #20 tablet Instructions: Laceration Care, Adult, Urinary Tract Infection, Adult, [id number] Referrals: Bernice Coronado PRINTER REPAIR TECHNICIAN [Primary Care Provider] - Forms: ED Department Discharge Additional Instructions: 1) Keep initial wound dressing on for 2 days then change dressing daily 2) Suture removal in 7 days 3) Make appointment to see your doctor about the leg wound and check for diabetes 4) Call with any concerns Sepsis Event Note (ED) - Focused Exam Vital Signs: Vital Signs Temp Pulse Resp BP Pulse Ox 09/21/20 21:28 37.0 C 95 18 134/87 98 - My Orders Last 24 Hours: My Active Orders 09/21/20 22:38 Vaccines to be Administered [RC] PER UNIT ROUTINE 09/21/20 22:50 CULTURE URINE [RM] Stat - Assessment/Plan Last 24 Hours: My Active Orders 09/21/20 22:38 Vaccines to be Administered [RC] PER UNIT ROUTINE 09/21/20 22:50 CULTURE URINE [RM] Stat
[2020-09-21] MEDS: Diphtheria,Pertussis(Acell),Tetanus Vaccine 0.5 ML Syringe IM ONE (23:09)
[2020-09-21] MEDS: cefTRIAXone 1 GM Vial IM ONE (23:17)
== END 2020-09-21 23:55 | disposition home or self-care (01) ==
LOC: FB.ED 21:26
DX: S81.801A Unspecified open wound, right lower leg, initial encounter (principal); S61.412A Laceration without foreign body of left hand, initial encounter; N39.0 Urinary tract infection, site not specified; E66.9 Obesity, unspecified; Z68.41 Body mass index [BMI] 40.0-44.9, adult; Z79.899 Other long term (current) drug therapy; Z23 Encounter for immunization; W26.0XXA Contact with knife, initial encounter; Y92.009 Unspecified place in unspecified non-institutional (private) residence as the place of occurrence of the external cause
CPT/HCPCS: 12001; 81001; 87086; 87088; 87186; 90471; 90715; 96372; 99283; J0696

== ENCOUNTER 2021-02-28 18:55 | Emergency (ER) | payer MEDICAID ==
--- NOTE | 2021-02-28 19:32 | EDM.PDOC ---
ED HPI GENERAL MEDICAL PROBLEM - General Time Seen by Provider: 02/28/21 19:10 Source of Information: Reports: Patient History Limitations: Reports: No Limitations - History of Present Illness INITIAL COMMENTS - FREE TEXT/NARRATIVE: c/o weak and sob x 5d PO 75% on RA per EMS lives alone, has had flu vax, has not had COVID vax, denies exposure to COVID still smoking, has "cut back' cough, no sputum - Related Data Allergies Allergy/AdvReac Type Severity Reaction Status Date / Time atorvastatin [From Lipitor] Allergy Edema Verified 03/24/19 01:01 dust Allergy Wheezing Uncoded 12/13/18 06:16 Home Meds: Home Meds Calcium Carbonate/Vitamin D3 [Caltrate 600+D 1500 MG-400 Units] 1 tab PO DAILY 06/16/17 [History] Cetirizine [ZyrTEC] 10 mg PO DAILY 06/16/17 [History] Fluticasone Furoate [Flonase Sensimist] 2 sprays(dnu) NASBOTH DAILY 06/16/17 [History] Naproxen 500 mg PO BID 06/16/17 [History] Omeprazole 20 mg PO DAILY 06/16/17 [History] Gabapentin [Neurontin] 300 mg PO TID 12/12/18 [History] Acetaminophen [Tylenol Arthritis] 650 mg PO Q8H PRN 12/13/18 [History] Albuterol Sulfate [Albuterol Sulfate Hfa] 2 puff IH Q4H PRN 12/13/18 [History] Cyclobenzaprine [Flexeril] 10 mg PO TID PRN 12/13/18 [History] Solifenacin [Vesicare] 5 mg PO DAILY 12/13/18 [History] Zolpidem Tartrate [Ambien] 10 mg PO BEDTIME PRN 12/13/18 [History] ARIPiprazole [Abilify] 10 mg PO DAILY 03/01/21 [History] Ascorbic Acid [Vitamin C] 250 mg PO DAILY 03/01/21 [History] Benzonatate [Tessalon Perles] 100 mg PO TID PRN 03/01/21 [History] Colloidal Oatmeal [Eczema] 140 gm TP TID PRN 03/01/21 [History] Cranberry Conc/Ascorbic Acid [Cranberry Concentrate Softgel] 3 cap PO DAILY 03/01/21 [History] Escitalopram Oxalate [Lexapro] 20 mg PO DAILY 03/01/21 [History] Gabapentin [Neurontin] 100 mg PO TID 03/01/21 [History] Levothyroxine Sodium [Levothyroxine] 25 mg PO DAILY 03/01/21 [History] Multivitamin/Iron/Folic Acid [Certavite-Antioxidant Tablet] 1 tab PO DAILY 1 05/02/20 [History] Hodge-3/DHA/Epa/Fish Oil [Fish Oil 1,000 mg Softgel] 3 cap PO DAILY 03/01/21 [History] buPROPion HCL [Wellbutrin Xl] 150 mg PO DAILY 03/01/21 [History] hydrOXYzine pamoate [Hydroxyzine Pamoate] 25 mg PO QID PRN 03/01/21 [History] Past Medical History - Past Health History Medical/Surgical History: Denies Medical/Surgical History HEENT History: Reports: Impaired Vision Genitourinary History: Reports: Urinary Incontinence, UTI, 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 Arthritic spine. Psychiatric History: Reports: Anxiety, Depression, OCD, PTSD, Other (See Below) Other Psychiatric History: Borderline personality disorder Endocrine/Metabolic History: Reports: Obesity/BMI 30+, Other (See Below) Other Endocrine/Metabolic History: States she is pre-diabetic. - Past Surgical History Female Surgical History: Reports: Section Social & Family History - Family History Family Medical History: No Pertinent Family History - Caffeine Use Caffeine Use: Reports: Tea Caffeine Use Comment: drinks 3: 44 ounces of tea ED ROS GENERAL - Review of Systems Review Of Systems: See Below Constitutional: Reports: Fever, Malaise, Weakness, Decreased Appetite HEENT: Reports: No Symptoms Respiratory: Reports: Shortness of Breath, Cough. Denies: Sputum Cardiovascular: Reports: No Symptoms. Denies: Chest Pain Endocrine: Reports: No Symptoms GI/Abdominal: Reports: No Symptoms. Denies: Abdominal Pain : Reports: No Symptoms Musculoskeletal: Reports: No Symptoms Skin: Reports: No Symptoms Neurological: Reports: No Symptoms Psychiatric: Reports: No Symptoms Hematologic/Lymphatic: Reports: No Symptoms Immunologic: Reports: No Symptoms ED EXAM, GENERAL - Physical Exam Exam: See Below Exam Limited By: No Limitations General Appearance: Alert, WD/WN, No Apparent Distress, Other (alert, conversant) Ears: Hearing Grossly Normal Nose: Normal Inspection, Normal Mucosa, No Blood Throat/Mouth: Normal Inspection, Normal Lips, Normal Voice, No Airway Compromise Head: Atraumatic, Normocephalic Neck: Normal Inspection, Supple, Non-Tender, Full Range of Motion. No: Lymphadenopathy (R), Lymphadenopathy (L) Respiratory/Chest: No Respiratory Distress, Lungs Clear, Normal Breath Sounds, Other (fair to good AE) Cardiovascular: Tachycardia, Other (2/6 ROSA at LSB) Back Exam: Normal Inspection, Full Range of Motion. No: CVA Tenderness (R), CVA Tenderness (L) Extremities: Normal Inspection, Non-Tender, No Pedal Edema Neurological: Alert, Oriented, CN II-XII Intact, Normal Cognition, No Motor/Sensory Deficits Psychiatric: Normal Affect, Normal Mood Skin Exam: Warm, Dry, Intact, Normal Color, No Rash, Other (venous stasis changes LE with hyperpigmentation, superficial breakdown above right lateral ankle of ~15 x 6 cm, full thickness but not deeper, no dressing, dry, drsg applied here) Lymphatic: No Adenopathy #1 Interpretation EKG Date: 02/28/21 EKG Interpretation Comments: SR, rate 115, NSSTs, probable LVH per computer altho this is doubtful and is more d/t rate and metabolic stress, no definite ischemia, no comparison Course - Vital Signs Last Recorded V/S: Last Vital Signs Temp 36.4 C 03/01/21 08:00 Pulse 100 03/01/21 08:00 Resp 20 03/01/21 08:00 BP 136/73 03/01/21 08:00 Pulse Ox 95 03/01/21 08:00 - Orders/Labs/Meds Orders: Active Orders 24 hr Category Date Time Status EKG Documentation Completion [RC] ASDIRECTED Care 03/01/21 09:24 Active Ang Chest [CT] Stat Exams 02/28/21 20:29 Taken Chest 1V Frontal [CR] Stat Exams 02/28/21 18:59 Ordered BASIC METABOLIC PANEL,BMP [CHEM] Routine Lab 03/01/21 19:20 Ordered CBC WITH AUTO DIFF [HEME] Routine Lab 03/01/21 19:20 Ordered CULTURE BLOOD [BC] Urgent Lab 02/28/21 19:20 Results CULTURE BLOOD [BC] Urgent Lab 02/28/21 19:30 Results TROPONIN I [CHEM] Routine Lab 03/01/21 19:20 Ordered Levothyroxine Med 03/01/21 06:00 Active 25 mcg PO 0600 dexAMETHasone Med 03/01/21 22:13 Active 6 mg PO DAILY Blood Culture x2 Reflex Set [OM.PC] Urgent Oth 02/28/21 18:59 Ordered EKG 12 Lead [EK] Routine Ther 02/28/21 18:59 Ordered EKG 12 Lead [EK] Routine Ther 03/01/21 19:20 Ordered Medication Orders Dexamethasone (Dexamethasone 4 Mg Tab) 6 mg PO DAILY UMESH Levothyroxine Sodium (Levothyroxine 25 Mcg Tab) 25 mcg PO 0600 UMESH Last Admin: 03/01/21 06:35 Dose: 25 mcg Documented by: DIFFCAL Labs: Laboratory Tests 02/28/21 02/28/21 02/28/21 Range/Units 19:20 19:20 19:20 WBC 9.2 (3.0-10.3) x10-3/uL RBC 4.32 (3.60-5.20) x10(6)uL Hgb 12.5 (11.4-15.5) g/dL Hct 38.4 (34.2-48.2) % MCV 88.9 (76.7-100.5) fL MCH 28.9 (23.9-33.9) pg MCHC 32.5 (31.9-34.8) g/dL RDW 15.5 (12.3-16.5) % Plt Count 364 (151-488) x10(3)uL MPV 8.4 (7.1-12.4) fL Neut % (Auto) 83.3 H (30.8-76.2) % Lymph % (Auto) 11.3 L (18.4-52.1) % [place] % (Auto) 5.2 (4.4-15.7) % Eos % (Auto) 0.0 L (0.6-8.1) % Baso % (Auto) 0.2 (0.2-1.5) % Neut # (Auto) 7.7 H (1.5-6.3) x10-3/uL Lymph # (Auto) 1.0 (1.0-4.4) x10-3/uL [place] # (Auto) 0.5 (0.3-1.0) x10-3/uL Eos # (Auto) 0.0 (0.0-0.8) x10-3/uL Baso # (Auto) 0.0 (0.0-0.1) x10-3/uL D-Dimer, Quantitative 0.88 H (0.0-0.59) mg/LFEU POC VBG pH (7.32-7.43) pH Units POC VBG pCO2 (41-51) mmHg POC VBG HCO3 (22-29) mmol/L VBG Base Excess (-2 - 3+) mmol/L O2 Delivery Device Oxygen Flow Rate LPM Sodium 133 L (135-145) mmol/L Potassium 4.9 D (3.5-5.3) mmol/L Chloride 99 L (100-110) mmol/L Carbon Dioxide 20 L (21-32) mmol/L BUN 17 (7-18) mg/dL Creatinine 1.1 H (0.55-1.02) mg/dL Est Cr Clr Drug Dosing TNP Estimated GFR (MDRD) 52 L (>60) BUN/Creatinine Ratio 15.5 (9-20) Glucose 112 (80-116) mg/dL Lactic Acid (0.4-2.0) mmol/L Calcium 8.5 L (8.6-10.2) mg/dL Total Bilirubin 0.6 (0.1-1.3) mg/dL AST 98 H D (5-25) IU/L ALT 48 H D (12-36) U/L Alkaline Phosphatase 148 H (56-112) IU/L Troponin I (4.0-60.3) pg/mL C-Reactive Protein (0.5-0.9) mg/dL Total Protein 8.8 H (6.0-8.0) g/dL Albumin 3.2 L (3.5-5.2) g/dL Globulin 5.6 g/dL Albumin/Globulin Ratio 0.6 Urine Color (YELLOW) Urine Appearance (CLEAR) Urine pH (5.0-6.5) Ur Specific [place] (1.010-1.025) Urine Protein (NEGATIVE) mg/dL Urine Glucose (UA) (NORMAL) mg/dL Urine Ketones (NEGATIVE) mg/dL Urine Occult Blood (NEGATIVE) Urine Nitrite (NEGATIVE) Urine Bilirubin (NEGATIVE) Urine Urobilinogen (NEGATIVE) mg/dL Ur Leukocyte Esterase (NEGATIVE) Urine RBC (0-5) Urine WBC (0-5) Ur Squamous Epith Cells (NS,R,O) Urine Bacteria (NS) Urine Mucus (NS) Influenza Type A RNA (NEGATIVE) Influenza Type B RNA (NEGATIVE) SARS-CoV-2 RNA (JOSEY) (NEGATIVE) 02/28/21 02/28/21 02/28/21 Range/Units 19:20 19:20 19:22 WBC (3.0-10.3) x10-3/uL RBC (3.60-5.20) x10(6)uL Hgb (11.4-15.5) g/dL Hct (34.2-48.2) % MCV (76.7-100.5) fL MCH (23.9-33.9) pg MCHC (31.9-34.8) g/dL RDW (12.3-16.5) % Plt Count (151-488) x10(3)uL MPV (7.1-12.4) fL Neut % (Auto) (30.8-76.2) % Lymph % (Auto) (18.4-52.1) % [place] % (Auto) (4.4-15.7) % Eos % (Auto) (0.6-8.1) % Baso % (Auto) (0.2-1.5) % Neut # (Auto) (1.5-6.3) x10-3/uL Lymph # (Auto) (1.0-4.4) x10-3/uL [place] # (Auto) (0.3-1.0) x10-3/uL Eos # (Auto) (0.0-0.8) x10-3/uL Baso # (Auto) (0.0-0.1) x10-3/uL D-Dimer, Quantitative (0.0-0.59) mg/LFEU POC VBG pH (7.32-7.43) pH Units POC VBG pCO2 (41-51) mmHg POC VBG HCO3 (22-29) mmol/L VBG Base Excess (-2 - 3+) mmol/L O2 Delivery Device Oxygen Flow Rate LPM Sodium (135-145) mmol/L Potassium (3.5-5.3) mmol/L Chloride (100-110) mmol/L Carbon Dioxide (21-32) mmol/L BUN (7-18) mg/dL Creatinine (0.55-1.02) mg/dL Est Cr Clr Drug Dosing Estimated GFR (MDRD) (>60) BUN/Creatinine Ratio (9-20) Glucose (80-116) mg/dL Lactic Acid 1.8 (0.4-2.0) mmol/L Calcium (8.6-10.2) mg/dL Total Bilirubin (0.1-1.3) mg/dL AST (5-25) IU/L ALT (12-36) U/L Alkaline Phosphatase (56-112) IU/L Troponin I 28.4 (4.0-60.3) pg/mL C-Reactive Protein 38.0 H* (0.5-0.9) mg/dL Total Protein (6.0-8.0) g/dL Albumin (3.5-5.2) g/dL Globulin g/dL Albumin/Globulin Ratio Urine Color (YELLOW) Urine Appearance (CLEAR) Urine pH (5.0-6.5) Ur Specific [place] (1.010-1.025) Urine Protein (NEGATIVE) mg/dL Urine Glucose (UA) (NORMAL) mg/dL Urine Ketones (NEGATIVE) mg/dL Urine Occult Blood (NEGATIVE) Urine Nitrite (NEGATIVE) Urine Bilirubin (NEGATIVE) Urine Urobilinogen (NEGATIVE) mg/dL Ur Leukocyte Esterase (NEGATIVE) Urine RBC (0-5) Urine WBC (0-5) Ur Squamous Epith Cells (NS,R,O) Urine Bacteria (NS) Urine Mucus (NS) Influenza Type A RNA Negative (NEGATIVE) Influenza Type B RNA Negative (NEGATIVE) SARS-CoV-2 RNA (JOSEY) Positive H (NEGATIVE) 02/28/21 02/28/21 Range/Units 22:39 22:50 WBC (3.0-10.3) x10-3/uL RBC (3.60-5.20) x10(6)uL Hgb (11.4-15.5) g/dL Hct (34.2-48.2) % MCV (76.7-100.5) fL MCH (23.9-33.9) pg MCHC (31.9-34.8) g/dL RDW (12.3-16.5) % Plt Count (151-488) x10(3)uL MPV (7.1-12.4) fL Neut % (Auto) (30.8-76.2) % Lymph % (Auto) (18.4-52.1) % [place] % (Auto) (4.4-15.7) % Eos % (Auto) (0.6-8.1) % Baso % (Auto) (0.2-1.5) % Neut # (Auto) (1.5-6.3) x10-3/uL Lymph # (Auto) (1.0-4.4) x10-3/uL [place] # (Auto) (0.3-1.0) x10-3/uL Eos # (Auto) (0.0-0.8) x10-3/uL Baso # (Auto) (0.0-0.1) x10-3/uL D-Dimer, Quantitative (0.0-0.59) mg/LFEU POC VBG pH 7.37 (7.32-7.43) pH Units POC VBG pCO2 36 L (41-51) mmHg POC VBG HCO3 21 L (22-29) mmol/L VBG Base Excess -4 L (-2 - 3+) mmol/L O2 Delivery Device Aerosol mask Oxygen Flow Rate 15 LPM Sodium (135-145) mmol/L Potassium (3.5-5.3) mmol/L Chloride (100-110) mmol/L Carbon Dioxide (21-32) mmol/L BUN (7-18) mg/dL Creatinine (0.55-1.02) mg/dL Est Cr Clr Drug Dosing Estimated GFR (MDRD) (>60) BUN/Creatinine Ratio (9-20) Glucose (80-116) mg/dL Lactic Acid (0.4-2.0) mmol/L Calcium (8.6-10.2) mg/dL Total Bilirubin (0.1-1.3) mg/dL AST (5-25) IU/L ALT (12-36) U/L Alkaline Phosphatase (56-112) IU/L Troponin I (4.0-60.3) pg/mL C-Reactive Protein (0.5-0.9) mg/dL Total Protein (6.0-8.0) g/dL Albumin (3.5-5.2) g/dL Globulin g/dL Albumin/Globulin Ratio Urine Color Yellow (YELLOW) Urine Appearance Clear (CLEAR) Urine pH 5.0 (5.0-6.5) Ur Specific [place] 1.010 (1.010-1.025) Urine Protein 30 H (NEGATIVE) mg/dL Urine Glucose (UA) Normal (NORMAL) mg/dL Urine Ketones 15 H (NEGATIVE) mg/dL Urine Occult Blood Moderate H (NEGATIVE) Urine Nitrite Negative (NEGATIVE) Urine Bilirubin Negative (NEGATIVE) Urine Urobilinogen Normal (NEGATIVE) mg/dL Ur Leukocyte Esterase Negative (NEGATIVE) Urine RBC 0-5 (0-5) Urine WBC 0-5 (0-5) Ur Squamous Epith Cells Few H (NS,R,O) Urine Bacteria Few H (NS) Urine Mucus Few H (NS) Influenza Type A RNA (NEGATIVE) Influenza Type B RNA (NEGATIVE) SARS-CoV-2 RNA (JOSEY) (NEGATIVE) Meds: Medications Generic Name Dose Route Start Last Admin Trade Name Freq PRN Reason Stop Dose Admin Dexamethasone 6 mg 03/01/21 22:13 Dexamethasone 4 Mg Tab PO DAILY UMESH Levothyroxine Sodium 25 mcg 03/01/21 06:00 03/01/21 06:35 Levothyroxine 25 Mcg Tab PO 25 mcg 0600 UMESH Administration Discontinued Medications Generic Name Dose Route Start Last Admin Trade Name Freq PRN Reason Stop Dose Admin Bupropion HCl 150 mg 03/01/21 05:59 03/01/21 07:49 Bupropion 150 Mg Tab.Sr PO 03/01/21 06:00 150 mg ONETIME ONE Administration Dexamethasone 6 mg 02/28/21 22:13 02/28/21 22:37 Dexamethasone 4 Mg Tab PO 02/28/21 22:14 6 mg ONETIME ONE Administration Escitalopram Oxalate 20 mg 03/01/21 05:59 03/01/21 07:49 Escitalopram 20 Mg Tab PO 03/01/21 06:00 20 mg ONETIME ONE Administration Hydroxyzine HCl 50 mg 02/28/21 20:02 02/28/21 20:06 Hydroxyzine Hcl 50 Mg/Ml Sdv IM 02/28/21 20:03 50 mg ONETIME ONE Administration Sodium Chloride 1,000 mls @ 999 mls/hr 02/28/21 22:30 02/28/21 22:37 Normal Saline IV 02/28/21 23:30 999 mls/hr .BOLUS ONE Administration Iopamidol 78 ml 02/28/21 20:39 02/28/21 21:03 Iopamidol 755 Mg/Ml 100 Ml Bottle IV 02/28/21 20:40 78 ml . DIRECTED ONE Administration Zolpidem Tartrate 10 mg 03/01/21 00:15 03/01/21 00:32 Zolpidem 10 Mg Tab PO 03/01/21 00:16 10 mg ONETIME ONE Administration - Re-Assessments/Exams Free Text/Narrative Re-Assessment/Exam: 03/01/21 09:13 [facility] placed pt on wait list for a COVID bed last night, they anticipated d/c's this AM, on calling back now [facility] has her their wait list for a COVID step down bed and will notify us later this morning if it opens up still no bed capacity here pt stabilized overnight, she was anxious much of the night, restless, moving around, took off the NRB multiple times, switched to a high-flow oxygen and has been doing much better ate her bfast this morning, HR down to upper 90s at time, no pain, states she is quite weak when she tries to walk or move, O2 drops with activity chest CTA with no PE, given dexamethasone 6 mg and her usual Ambien 10 mg last night, given levothyroxine 25 mcg and escitalopram 20 mg and buprion 150 mg this AM which are her usual meds, aripiprazole 10 mg and gabapentin 300 mg are held at the moment d/t weakness and wanting to avoid excess sedation will sign out to Dr Dominguez at 9:30a at change of shift Departure - Departure Time of Disposition: 09:44 Disposition: Still A Patient 30 Condition: Fair Clinical Impression: Pneumonia due to COVID-19 virus, Hypoxia, Anxiety, Elevated LFTs, Acute renal insufficiency, Mild dehydration, Hypoalbuminemia - Discharge Information *PRESCRIPTION DRUG MONITORING PROGRAM REVIEWED*: Not Applicable *COPY OF PRESCRIPTION DRUG MONITORING REPORT IN PATIENT TIANNA: Not Applicable Referrals: Bernice Coronado F[employer] MANAGEMENT AGENT [Primary Care Provider] - Sepsis Event Note (ED) - Focused Exam Vital Signs: Vital Signs Temp Pulse Resp BP Pulse Ox 03/01/21 08:00 36.4 C 100 20 136/73 95 03/01/21 05:30 36.9 C - My Orders Last 24 Hours: My Active Orders 02/28/21 18:59 Chest 1V Frontal [CR] Stat Blood Culture x2 Reflex Set [OM.PC] Urgent EKG 12 Lead [EK] Routine 02/28/21 19:20 CULTURE BLOOD [BC] Urgent 02/28/21 19:30 CULTURE BLOOD [BC] Urgent 02/28/21 20:29 Ang Chest [CT] Stat 03/01/21 06:00 Levothyroxine 25 mcg PO 0600 03/01/21 09:24 EKG Documentation Completion [RC] ASDIRECTED 03/01/21 19:20 BASIC METABOLIC PANEL,BMP [CHEM] Routine CBC WITH AUTO DIFF [HEME] Routine TROPONIN I [CHEM] Routine EKG 12 Lead [EK] Routine 03/01/21 22:13 dexAMETHasone 6 mg PO DAILY - Assessment/Plan Last 24 Hours: My Active Orders 02/28/21 18:59 Chest 1V Frontal [CR] Stat Blood Culture x2 Reflex Set [OM.PC] Urgent EKG 12 Lead [EK] Routine 02/28/21 19:20 CULTURE BLOOD [BC] Urgent 02/28/21 19:30 CULTURE BLOOD [BC] Urgent 02/28/21 20:29 Ang Chest [CT] Stat 03/01/21 06:00 Levothyroxine 25 mcg PO 0600 03/01/21 09:24 EKG Documentation Completion [RC] ASDIRECTED 03/01/21 19:20 BASIC METABOLIC PANEL,BMP [CHEM] Routine CBC WITH AUTO DIFF [HEME] Routine TROPONIN I [CHEM] Routine EKG 12 Lead [EK] Routine 03/01/21 22:13 dexAMETHasone 6 mg PO DAILY
[2021-02-28] MEDS ORDERED: hydrOXYzine HCl 50 MG/ML SDV IM ONE (20:02)
[2021-02-28 20:27] LABS: CORONAVIRUS COVID-19 NAA POSITIVE (NEGATIVE)
[2021-02-28] MEDS ORDERED: Iopamidol 755 Mg/ML 100 ML Bottle IV ONE (20:39)
[2021-02-28] MEDS ORDERED: Dexamethasone 4 MG Tab PO ONE (22:13)
[2021-02-28] MEDS ORDERED: Sodium Chloride 0.9% 1,000 ML IV ONE (22:30)
[2021-02-28 22:43] LABS: BASE EXCESS VENOUS,POC -4 mmol/L (-2 - 3+); PCO2 VENOUS,POC 36 mmHg (41-51); PH VENOUS,POC 7.37 pH Units (7.32-7.43)
[2021-03-01] MEDS ORDERED: Zolpidem 10 MG Tab PO ONE (00:15)
[2021-03-01] MEDS ORDERED: Escitalopram 20 MG Tab PO ONE (05:59)
[2021-03-01] MEDS ORDERED: buPROPion 150 MG Tab.SR PO ONE (05:59)
[2021-03-01] MEDS ORDERED: Levothyroxine 25 MCG Tab PO SCH (06:00)
[2021-03-01] MEDS ORDERED: Sodium Chloride 0.9% 1,000 ML IV SCH (11:15)
--- NOTE | 2021-03-01 11:16 | PCM.SN.2 ---
- Free Text/Narrative Note: 50-year-old female with bilateral Covid pneumonia and respiratory failure who is currently on high flow oxygen at 12 L/m via nasal cannula with O2 saturations in the low 90s and a pulse rate in the 90s to 100 with blood pressures in the 120 to 130 systolic range. The patient presented last night to Dr. Kaur and I refer the reader this note to his note. The patient was turned over to me at change of shift at 9:30 AM today and the patient had apparently been presented to [facility] last night and there were no beds available and the patient is apparently on a wait list for admission but there were no beds again this morning. The patient has remained hemodynamically and respiratory stable through the night factors hemodynamics have somewhat improved with of her pulse rate and a stable blood pressure. The patient has received IV fluids and she has received dexamethasone 6 mg and is being maintained on oxygen as above. I did call and discuss the patient's case with [facility] and they will be checking out to see if they have bed availability to accept this patient in transfer.. I was informed by our nursing staff that there are no beds available still at this facility that the patient would need level of care and would not be appropriate for admission to our facility. 10:50: [facility] in [place] did call back and gathered some more information and they did state that they had a bed available and they would get the hospitalist to call and discuss the patient with me. 11:05: I discussed the patient's case with Dr. Camarillo, hospitalist at [facility], and he has agreed to accept the patient in transfer. They will need to call us back once a bed has become available. We will continue to closely monitor the patient. I have ordered normal saline at 150 mL per hour no other changes to her therapy at present. The patient will need to be transferred via ALS ambulance to [facility] for direct admission to their facility. Assessment: 1. Covid pneumonia. 2. Acute hypoxic respiratory failure. 3. Dehydration. Plan: The patient is being transferred to [facility] via ALS ambulance for direct admission as above with Dr. Camarillo accepting.
[2021-03-01] MEDS ORDERED: Dexamethasone 4 MG Tab PO SCH (22:13)
== END 2021-03-01 15:30 | disposition critical access hospital (66) ==
LOC: FB.ED 18:55
DX: U07.1 COVID-19 (principal); J12.82 Pneumonia due to coronavirus disease 2019; R09.02 Hypoxemia; F41.9 Anxiety disorder, unspecified; N17.9 Acute kidney failure, unspecified; E86.0 Dehydration; R79.89 Other specified abnormal findings of blood chemistry; E88.09 Other disorders of plasma-protein metabolism, not elsewhere classified; E66.9 Obesity, unspecified; Z68.30 Body mass index [BMI] 30.0-30.9, adult; Z88.8 Allergy status to other drugs, medicaments and biological substances; Z91.048 Other nonmedicinal substance allergy status; Z79.899 Other long term (current) drug therapy
CPT/HCPCS: 0240U; 36415; 71275; 80053; 81001; 83605; 84484; 85025; 85379; 86140; 87040; 93005; 96372; 99285; A9270; J3410; J7030; J8540; Q9967